=== PATIENT | male | born 1975 | race Caucasian/White ===

== ENCOUNTER 2016-08-06 09:45 | Emergency (ER) | payer OTHER ==
[~2016-08-06] VITALS: Ht 185.4 cm; Wt 115.8 kg
[~2016-08-06 09:45] MED LIST: GLUCOPHAGE500 MG PO; NO HOME MEDS; PERCOCET 10/1 TABLET PO
[2016-08-06] MEDS ORDERED: LISINOPRIL20 MG PO (10:07)
[2016-08-06] MEDS ORDERED: K-DUR20 MEQ PO (10:08)
[2016-08-06] MEDS ORDERED: LEVOTHYROXINE25 MCG PO (10:08)
[2016-08-06] MEDS ORDERED: FUROSEMIDE40 MG PO (10:08)
[2016-08-06] MEDS ORDERED: SERTRALINE HCL50 MG PO (10:09)
[2016-08-06 10:23] LABS: BASOPHIL COUNT 0.1 K/uL (0-0.1); EOSINOPHIL (%) 3.8 % (0-5); EOSINOPHIL COUNT 0.4 K/uL (0-0.3); HEMATOCRIT 34.4 % (38.0-50.0); IMMATURE GRANULOCYTE (%) 0.5 % (0.0-0.7); IMMATURE GRANULOCYTE COUNT 0.1 K/uL; INSTRUMENT ABS NEUTROPHIL CT 5.8 K/uL; LYMPHOCYTE COUNT 3.8 K/uL (1.0-2.8); MCH 27.3 PG (29.0-34.0); MCHC 34.3 G/DL (30.0-36.0); MCV 79.6 FL (86-99); MEAN PLAT.VOLUME 10.2 uM^3 (9.0-12.4); MONOCYTE COUNT 0.7 K/uL (0-0.8); NEUTROPHIL (%) 53.8 % (45-76); NEUTROPHIL COUNT 5.8 K/uL (1.8-6.4); PLATELET COUNT 242 K/uL (156-360); RBC DIS.WIDTH-CV 13.1 % (11.8-14.6); RBC DIS.WIDTH-SD 37.4 % (39-53); RED BLOOD COUNT 4.32 M/uL (4.00-5.50); WHITE BLOOD COUNT 10.8 K/uL (4.1-10.2)
[2016-08-06 10:32] LABS: CHLORIDE 104 mEq/L (99-109); POTASSIUM 5.3 mEq/L (3.7-5.4); SODIUM 134 mEq/L (136-147)
[2016-08-06 10:35] LABS: GLUCOSE 238 mg/dL (70-99)
[2016-08-06 10:36] LABS: ANION GAP 4 MEQ/L (2-14)
[2016-08-06 10:37] LABS: TOTAL BILIRUBIN 0.2 mg/dL (0.0-1.0)
[2016-08-06 10:38] LABS: ALKALINE PHOSPHATASE 83 IU/L (3-129); GFR ESTIMATE (CALCULATED) > 59 mL/min/
[2016-08-06 10:39] LABS: UREA NITROGEN (BUN) 27 mg/dL (9-23)
[2016-08-06 10:44] LABS: TROP-I INTERPRETATION NEGATIVE; TROPONIN-I 0.03 ng/mL (0.0-0.30)
[2016-08-06] MEDS ORDERED: HYDROCHLOROTHIA25 MG PO (12:35)
[2016-08-06] MEDS ORDERED: COREG12.5 M1 PO (12:35)
[2016-08-06 12:56] VITALS: BP 158/99
== END 2016-08-06 12:56 | disposition home or self-care (01) ==
LOC: EME 09:45
PROVIDERS: Emergency Medicine
DX: I10 Essential (primary) hypertension (principal); R51 Headache; F17.200 Nicotine dependence, unspecified, uncomplicated; E11.9 Type 2 diabetes mellitus without complications; Z79.84 Long term (current) use of oral hypoglycemic drugs
CPT/HCPCS: 70450; 71020; 80053; 84484; 85025; 93005; 99281; 99284

== ENCOUNTER 2016-10-06 14:05 | Emergency (ER) | payer OTHER ==
[~2016-10-06] VITALS: Ht 185.4 cm; Wt 120.0 kg
[~2016-10-06 14:05] MED LIST changes: +COREG12.5 M1 PO; +FUROSEMIDE40 MG PO; +HYDROCHLOROTHIA25 MG PO; +K-DUR20 MEQ PO; +LEVOTHYROXINE25 MCG PO; +LISINOPRIL20 MG PO; +SERTRALINE HCL50 MG PO
[2016-10-06 14:56] LABS: HEMATOCRIT 30.8 % (38.0-50.0); MCH 27.8 PG (29.0-34.0); MCHC 34.4 G/DL (30.0-36.0); MCV 80.8 FL (86-99); PLATELET COUNT 220 K/uL (156-360); RBC DIS.WIDTH-CV 13.5 % (11.8-14.6); RBC DIS.WIDTH-SD 39.8 % (39-53); RED BLOOD COUNT 3.81 M/uL (4.00-5.50)
[2016-10-06 15:05] LABS: CHLORIDE 110 mEq/L (99-109); SODIUM 137 mEq/L (136-147)
[2016-10-06 15:08] LABS: GLUCOSE 225 mg/dL (70-99)
[2016-10-06 15:09] LABS: ANION GAP 5 MEQ/L (2-14)
[2016-10-06 15:10] LABS: TOTAL BILIRUBIN 0.1 mg/dL (0.0-1.0)
[2016-10-06 15:11] LABS: ALKALINE PHOSPHATASE 75 IU/L (3-129)
[2016-10-06 15:13] LABS: DIRECT BILIRUBIN 0.1 mg/dL (0.0-0.3); GFR ESTIMATE (CALCULATED) > 59 mL/min/; UREA NITROGEN (BUN) 25 mg/dL (9-23)
[2016-10-06 15:15] LABS: LIPASE 12 U/L (1.0-51.0)
[2016-10-06 15:21] LABS: PROTHROMBIN TIME 9.9 (9.2-11.2)
[2016-10-06 16:17] LABS: ADD MIUA? YES; BILIRUBIN NEGATIVE; BLOOD SMALL; COLOR YELLOW ((YELLOW)); GLUCOSE (STRIP) >=500; KETONES NEGATIVE; LEUKOCYTES NEGATIVE; NITRITE NEGATIVE; PROTEIN (STRIP) >=500; SPECIFIC GRAVITY 1.016 (1.000-1.030); UROBILINOGEN 0.2 MG/DL (0.2-1.0)
[2016-10-06 16:20] LABS: BACTERIA RARE /HPF; EPITHELIAL CELLS RARE /HPF; MUCUS TRACE /LPF; UCUL ADDED? NO; WHITE BLOOD CELLS 0-5 /HPF (0-5)
[2016-10-06] MEDS ORDERED: ALDACTONE25 MG PO (16:37)
[2016-10-06 16:42] VITALS: BP 188/110
== END 2016-10-06 17:34 | disposition home or self-care (01) ==
LOC: EME 14:05
DX: R60.1 Generalized edema (principal); R18.8 Other ascites; E11.9 Type 2 diabetes mellitus without complications; I10 Essential (primary) hypertension; F17.200 Nicotine dependence, unspecified, uncomplicated
CPT/HCPCS: 76705; 80053; 81003; 82248; 83690; 85027; 85610; 99281; 99284

== ENCOUNTER 2016-10-25 10:34 | Inpatient (IN) | payer OTHER ==
[~2016-10-25] VITALS: Ht 185.4 cm; Wt 124.2 kg
[~2016-10-25 10:34] MED LIST changes: +ALDACTONE25 MG PO
[2016-10-25 12:09] LABS: HEMATOCRIT 33.1 % (38.0-50.0); MCH 27.9 PG (29.0-34.0); MCHC 33.8 G/DL (30.0-36.0); MCV 82.3 FL (86-99); MEAN PLAT.VOLUME 10.2 uM^3 (9.0-12.4); PLATELET COUNT 236 K/uL (156-360); RBC DIS.WIDTH-CV 13.6 % (11.8-14.6); RBC DIS.WIDTH-SD 40.6 % (39-53); RED BLOOD COUNT 4.02 M/uL (4.00-5.50); WHITE BLOOD COUNT 11.3 K/uL (4.1-10.2)
[2016-10-25 12:23] LABS: CHLORIDE 107 mEq/L (99-109); POTASSIUM 5.1 mEq/L (3.7-5.4); SODIUM 137 mEq/L (136-147)
[2016-10-25 12:25] LABS: GLUCOSE 274 mg/dL (70-99)
[2016-10-25 12:26] LABS: ANION GAP 4 MEQ/L (2-14)
[2016-10-25 12:27] LABS: TOTAL BILIRUBIN 0.2 mg/dL (0.0-1.0)
[2016-10-25 12:29] LABS: ALKALINE PHOSPHATASE 89 IU/L (3-129); GFR ESTIMATE (CALCULATED) > 59 mL/min/
[2016-10-25 12:30] LABS: UREA NITROGEN (BUN) 32 mg/dL (9-23)
[2016-10-25 13:07] LABS: ADD MIUA? YES; BILIRUBIN NEGATIVE; BLOOD NEGATIVE; COLOR YELLOW ((YELLOW)); GLUCOSE (STRIP) >=500; KETONES NEGATIVE; LEUKOCYTES NEGATIVE; NITRITE NEGATIVE; PROTEIN (STRIP) >=500; SPECIFIC GRAVITY 1.018 (1.000-1.030); UROBILINOGEN 0.2 MG/DL (0.2-1.0)
[2016-10-25 13:20] LABS: BACTERIA NONE SEEN /HPF; EPITHELIAL CELLS RARE /HPF; HYALINE CASTS 20-30 /LPF; MUCUS TRACE /LPF; UCUL ADDED? NO; WHITE BLOOD CELLS 0-5 /HPF (0-5)
[2016-10-25] MEDS ORDERED: METFORMIN HCL1000 MG PO (17:00)
[2016-10-25 19:23] LABS: TROP-I INTERPRETATION NEGATIVE; TROPONIN-I < 0.01 ng/mL (0.0-0.30)
[2016-10-25 21:29] VITALS: BP 188/102
[2016-10-25 21:50] LABS: POINT-OF-CARE METER ID UU14174225
[2016-10-25 23:37] VITALS: BP 174/90
[2016-10-26 01:36] LABS: TROP-I INTERPRETATION NEGATIVE; TROPONIN-I < 0.01 ng/mL (0.0-0.30)
[2016-10-26 04:00] VITALS: BP 127/91
[2016-10-26 07:18] VITALS: BP 165/77
[2016-10-26 07:38] LABS: POINT-OF-CARE METER ID UU14174225
[2016-10-26 08:55] LABS: HEMATOCRIT 28.1 % (38.0-50.0); MCH 28.2 PG (29.0-34.0); MCHC 34.2 G/DL (30.0-36.0); MCV 82.4 FL (86-99); MEAN PLAT.VOLUME 10.2 uM^3 (9.0-12.4); PLATELET COUNT 204 K/uL (156-360); RBC DIS.WIDTH-CV 13.7 % (11.8-14.6); RBC DIS.WIDTH-SD 41.1 % (39-53); RED BLOOD COUNT 3.41 M/uL (4.00-5.50); WHITE BLOOD COUNT 9.1 K/uL (4.1-10.2)
[2016-10-26 09:25] LABS: PROTHROMBIN TIME 10.3 (9.2-11.2)
[2016-10-26 09:59] LABS: ALKALINE PHOSPHATASE 67 IU/L (3-129); ANION GAP 4 MEQ/L (2-14); CHLORIDE 110 MEQ/L (99-109); GFR ESTIMATE (CALCULATED) > 59 mL/min/; GLUCOSE 166 mg/dL (70-99); IRON 89 MCG/DL (35-150); POTASSIUM 4.5 MEQ/L (3.7-5.4); SAMPLE HEMOLYSIS CHECK 0; SAMPLE ICTERIC CHECK 0; SAMPLE LIPEMIA CHECK 0; SODIUM 139 MEQ/L (136-147); TOTAL BILIRUBIN 0.2 MG/DL (0.0-1.0); UREA NITROGEN (BUN) 31 mg/dL (9-23)
[2016-10-26 10:17] LABS: TROP-I INTERPRETATION NEGATIVE; TROPONIN-I 0.02 ng/mL (0.0-0.30)
[2016-10-26 10:58] VITALS: BP 164/83
[2016-10-26 14:58] VITALS: BP 154/79
[2016-10-26 19:26] VITALS: BP 167/84
[2016-10-26 23:26] VITALS: BP 153/81
[2016-10-27 03:27] VITALS: BP 146/89
[2016-10-27 06:42] LABS: BASOPHIL COUNT 0.1 K/uL (0-0.1); EOSINOPHIL COUNT 0.4 K/uL (0-0.3); HEMATOCRIT 28.9 % (38.0-50.0); IMMATURE GRANULOCYTE (%) 0.3 % (0.0-0.7); INSTRUMENT ABS NEUTROPHIL CT 4.3 K/uL; LYMPHOCYTE COUNT 4.4 K/uL (1.0-2.8); MCH 28.1 PG (29.0-34.0); MCHC 33.9 G/DL (30.0-36.0); MCV 82.8 FL (86-99); MEAN PLAT.VOLUME 10.5 uM^3 (9.0-12.4); MONOCYTE (%) 8.1 % (3-12); MONOCYTE COUNT 0.8 K/uL (0-0.8); NEUTROPHIL (%) 42.7 % (45-76); NEUTROPHIL COUNT 4.3 K/uL (1.8-6.4); PLATELET COUNT 204 K/uL (156-360); RBC DIS.WIDTH-CV 13.4 % (11.8-14.6); RBC DIS.WIDTH-SD 40.4 % (39-53); RED BLOOD COUNT 3.49 M/uL (4.00-5.50); WHITE BLOOD COUNT 10.1 K/uL (4.1-10.2)
[2016-10-27 07:14] LABS: ANION GAP 2 MEQ/L (2-14); CHLORIDE 109 MEQ/L (99-109); GFR ESTIMATE (CALCULATED) > 59 mL/min/; GLUCOSE 137 mg/dL (70-99); POTASSIUM 4.7 MEQ/L (3.7-5.4); SAMPLE HEMOLYSIS CHECK 0; SAMPLE ICTERIC CHECK 0; SAMPLE LIPEMIA CHECK 0; SODIUM 139 MEQ/L (136-147); UREA NITROGEN (BUN) 34 mg/dL (9-23)
[2016-10-27 07:19] VITALS: BP 172/88
[2016-10-27 11:02] VITALS: BP 160/89
[2016-10-27 11:17] LABS: POINT-OF-CARE METER ID UU14174225
[2016-10-27] MEDS ORDERED: LISINOPRIL5 MG PO (13:30)
[2016-10-27] MEDS ORDERED: SPIRONOLACTONE25 MG PO (13:30)
[2016-10-27] MEDS ORDERED: LASIX40 MG PO (13:31)
== END 2016-10-27 15:14 | disposition home or self-care (01) | DRG 433 ==
LOC: EME 10:34 → 5SOUTH 18:24 → EDOF 18:24 → 5SOUTH 21:18
PROVIDERS: Hospitalist; Internal Medicine
DX: K74.60 Unspecified cirrhosis of liver (principal); E87.70 Fluid overload, unspecified; I16.0 Hypertensive urgency; E11.65 Type 2 diabetes mellitus with hyperglycemia; R16.0 Hepatomegaly, not elsewhere classified; B18.2 Chronic viral hepatitis C; I10 Essential (primary) hypertension; R18.8 Other ascites; D18.09 Hemangioma of other sites; E66.9 Obesity, unspecified; Z68.35 Body mass index [BMI] 35.0-35.9, adult; E88.09 Other disorders of plasma-protein metabolism, not elsewhere classified; D64.9 Anemia, unspecified; Z87.891 Personal history of nicotine dependence; Z82.49 Family history of ischemic heart disease and other diseases of the circulatory system
CPT/HCPCS: 71010; 71275; 74177; 76705; 80048; 80053; 80076; 81003; 82272; 82607; 82948; 83540; 83880; 84443; 84466; 84484; 85025; 85027; 85610; 93005; 93306; 93970; 94640; 99281; 99285; J1650; J1815; J1940

== ENCOUNTER → 2016-11-30 | Outpatient (CLI) | payer OTHER ==
[~2016-11-30] VITALS: Ht 188 cm; Wt 109.8 kg
[~2016-11-30] MED LIST changes: +LASIX40 MG PO; +LISINOPRIL5 MG PO; +METFORMIN HCL1000 MG PO; +SPIRONOLACTONE25 MG PO
[2016-11-30 08:46] LABS: POINT-OF-CARE METER ID UU13113694
[2016-11-30 09:21] LABS: PROTHROMBIN TIME 9.9 (9.2-11.2); PTT 25.4 (25-32)
== END | disposition home or self-care (01) ==
LOC: OPR 07:57 → EDSTATUS 08:00
PROVIDERS: Internal Medicine; Radiology Diagnostic Radiology
DX: E11.21 Type 2 diabetes mellitus with diabetic nephropathy (principal); E11.22 Type 2 diabetes mellitus with diabetic chronic kidney disease; I12.9 Hypertensive chronic kidney disease with stage 1 through stage 4 chronic kidney disease, or unspecified chronic kidney disease; N18.2 Chronic kidney disease, stage 2 (mild); E66.9 Obesity, unspecified; Z68.32 Body mass index [BMI] 32.0-32.9, adult; B18.2 Chronic viral hepatitis C; E78.5 Hyperlipidemia, unspecified
CPT/HCPCS: 77012; 82948; 85610; 85730; 88305; 88313 90; 88346 90; 88348 90; J3010

== ENCOUNTER 2016-12-29 18:28 | Emergency (ER) | payer OTHER ==
[~2016-12-29] VITALS: Ht 185.4 cm; Wt 126.8 kg
[2016-12-29 19:16] LABS: BASOPHIL COUNT 0.1 K/uL (0-0.1); EOSINOPHIL (%) 4.3 % (0-5); EOSINOPHIL COUNT 0.3 K/uL (0-0.3); HEMATOCRIT 32.5 % (38.0-50.0); IMMATURE GRANULOCYTE (%) 0.4 % (0.0-0.7); INSTRUMENT ABS NEUTROPHIL CT 3.6 K/uL; LYMPHOCYTE COUNT 2.6 K/uL (1.0-2.8); MCHC 34.5 G/DL (30.0-36.0); MCV 81.3 FL (86-99); MEAN PLAT.VOLUME 9.8 uM^3 (9.0-12.4); MONOCYTE (%) 6.7 % (3-12); MONOCYTE COUNT 0.5 K/uL (0-0.8); NEUTROPHIL (%) 51.1 % (45-76); NEUTROPHIL COUNT 3.6 K/uL (1.8-6.4); PLATELET COUNT 192 K/uL (156-360); RBC DIS.WIDTH-CV 13.3 % (11.8-14.6); RBC DIS.WIDTH-SD 39.4 % (39-53)
[2016-12-29 19:24] LABS: CHLORIDE 110 mEq/L (99-109); POTASSIUM 4.8 mEq/L (3.7-5.4); SODIUM 135 mEq/L (136-147)
[2016-12-29 19:27] LABS: GLUCOSE 240 mg/dL (70-99)
[2016-12-29 19:28] LABS: ANION GAP 2 MEQ/L (2-14)
[2016-12-29 19:29] LABS: TOTAL BILIRUBIN 0.1 mg/dL (0.0-1.0)
[2016-12-29 19:30] LABS: ALKALINE PHOSPHATASE 89 IU/L (3-129); GFR ESTIMATE (CALCULATED) 54 mL/min/
[2016-12-29 19:31] LABS: UREA NITROGEN (BUN) 27 mg/dL (9-23)
[2016-12-29 19:39] LABS: TROP-I INTERPRETATION NEGATIVE; TROPONIN-I 0.02 ng/mL (0.0-0.30)
[2016-12-29 19:55] LABS: INTER. NORMALIZED RATIO 0.9; PROTHROMBIN TIME 9.5 SEC (10.2-12.9)
[2016-12-29 19:57] LABS: PTT 28.2 SEC (25-37)
[2016-12-29 20:27] LABS: ADD MIUA? YES; BILIRUBIN NEGATIVE; BLOOD SMALL; COLOR YELLOW ((YELLOW)); GLUCOSE (STRIP) >=500; KETONES NEGATIVE; LEUKOCYTES NEGATIVE; NITRITE NEGATIVE; PROTEIN (STRIP) >=500; SPECIFIC GRAVITY 1.021 (1.000-1.030); UROBILINOGEN 0.2 MG/DL (0.2-1.0)
[2016-12-29 20:33] LABS: BACTERIA RARE /HPF; EPITHELIAL CELLS RARE /HPF; MUCUS TRACE /LPF; UCUL ADDED? NO; WHITE BLOOD CELLS 0-5 /HPF (0-5)
[2016-12-29 20:39] LABS: GRANULAR CASTS 20-25 /LPF
[2016-12-29] MEDS ORDERED: NORVASC5 MG PO (21:23)
[2016-12-29 22:11] VITALS: BP 171/114
[2016-12-30] MEDS ORDERED: DIOVAN40 MG PO (13:12)
== END 2016-12-29 22:19 | disposition home or self-care (01) ==
LOC: EME 18:28
PROVIDERS: Emergency Medicine
DX: R18.8 Other ascites (principal); E11.9 Type 2 diabetes mellitus without complications; F17.200 Nicotine dependence, unspecified, uncomplicated; Z79.84 Long term (current) use of oral hypoglycemic drugs; Z86.19 Personal history of other infectious and parasitic diseases
CPT/HCPCS: 76705; 80053; 81003; 83880; 84484; 85025; 85610; 85730; 99281; 99284

== ENCOUNTER → 2016-12-30 | Outpatient (CLI) | payer OTHER ==
[~2016-12-30] MED LIST changes: +DIOVAN40 MG PO; +NORVASC5 MG PO
[2016-12-30 13:52] LABS: TYPE OF FLUID PARACENTESIS
[2016-12-30 14:41] LABS: BODY FLUID EOSINOPHILS 0 % (0-25); BODY FLUID RBC'S < 1000 /MM^3 (0-100); BODY FLUID WBC'S 155 /MM^3 (0-500); MONONUCLEAR WBC'S 98 %; POLYNUCLEAR WBC'S 2 % (0-25)
== END | disposition home or self-care (01) ==
LOC: RAD 12:58
PROVIDERS: Emergency Medicine
PROC: 0W9G3ZZ Drainage of Peritoneal Cavity, Percutaneous Approach (ICD-10-PCS; principal; 2016-12-30)
DX: R18.8 Other ascites (principal)
CPT/HCPCS: 49083; 87070; 87205; 89051

== ENCOUNTER → 2017-02-02 | Outpatient (CLI) | payer OTHER | END | disposition home or self-care (01) | LOC: RAD 08:03 | PROC: 0W9G3ZZ Drainage of Peritoneal Cavity, Percutaneous Approach (ICD-10-PCS; principal; 2017-02-02) | DX: R18.8 Other ascites (principal); B18.2 Chronic viral hepatitis C; R60.1 Generalized edema; K76.0 Fatty (change of) liver, not elsewhere classified | CPT/HCPCS: 49083 ==

== ENCOUNTER → 2017-04-05 | Outpatient (CLI) | payer OTHER | END | disposition home or self-care (01) | LOC: RAD 12:58 | PROC: 0W9G3ZZ Drainage of Peritoneal Cavity, Percutaneous Approach (ICD-10-PCS; principal; 2017-04-05) | DX: R18.8 Other ascites (principal); K74.69 Other cirrhosis of liver | CPT/HCPCS: 49083; P9047 ==

== ENCOUNTER 2017-05-20 08:29 | Inpatient (IN) | payer OTHER ==
[~2017-05-20] VITALS: Ht 182.9 cm; Wt 140.0 kg
[~2017-05-20 08:29] MED LIST changes: -ERGOCALCIF50000 UNIT PO
[2017-05-20 09:26] LABS: HEMATOCRIT 27.1 % (38.0-50.0); HEMOGLOBIN 9.3 G/DL (12.5-16.6); MCH 28.3 PG (29.0-34.0); MCHC 34.3 G/DL (30.0-36.0); MCV 82.4 FL (86-99); PLATELET COUNT 171 K/uL (156-360); RBC DIS.WIDTH-CV 14.3 % (11.8-14.6); RBC DIS.WIDTH-SD 42.5 % (39-53); RED BLOOD COUNT 3.29 M/uL (4.00-5.50); WHITE BLOOD COUNT 9.8 K/uL (4.1-10.2)
[2017-05-20 09:34] LABS: CHLORIDE 112 mEq/L (99-109); POTASSIUM 4.3 mEq/L (3.7-5.4); SODIUM 139 mEq/L (136-147)
[2017-05-20 09:36] LABS: GLUCOSE 212 mg/dL (70-99)
[2017-05-20 09:40] LABS: GFR ESTIMATE (CALCULATED) 39 mL/min/ (58.99-99999)
[2017-05-20 09:41] LABS: UREA NITROGEN (BUN) 33 mg/dL (9-23)
[2017-05-20 10:06] LABS: TROP-I INTERPRETATION NEGATIVE; TROPONIN-I 0.03 ng/mL (0.0-0.30)
[2017-05-20] MEDS ORDERED: ERGOCALCIF50000 UNIT PO (14:04)
[2017-05-20 14:30] VITALS: BP 175/98
[2017-05-20 15:03] LABS: PTT 29.7 SEC (25-37)
[2017-05-20 15:17] LABS: HDL CHOLESTEROL 36 MG/DL (Desirable>=40); LDL CHOLESTEROL 197 mg/dL (Desirable<100); NON-HDL CHOLESTEROL 240 mg/dL (Desirable<160); TOTAL CHOLESTEROL 276 mg/dL (Desirable<200); TRIGLYCERIDES 215 MG/DL (Normal: <150)
[2017-05-20 15:30] VITALS: BP 162/80
[2017-05-20 15:38] LABS: Estimated Average Glucose 166 mg/dL (70-123); HEMOGLOBIN A1c (GLYCOHEMOGLOB) 7.4 % HGB (Below 5.7)
[2017-05-20 19:12] VITALS: BP 207/109
[2017-05-20 23:38] VITALS: BP 178/110
[2017-05-21 03:12] VITALS: BP 176/88
[2017-05-21 06:35] LABS: HEMATOCRIT 27.8 % (38.0-50.0); HEMOGLOBIN 9.4 G/DL (12.5-16.6); MCH 28.1 PG (29.0-34.0); MCHC 33.8 G/DL (30.0-36.0); PLATELET COUNT 166 K/uL (156-360); RBC DIS.WIDTH-CV 14.5 % (11.8-14.6); RBC DIS.WIDTH-SD 43.3 % (39-53); RED BLOOD COUNT 3.35 M/uL (4.00-5.50); WHITE BLOOD COUNT 8.8 K/uL (4.1-10.2)
[2017-05-21 06:53] LABS: CHLORIDE 113 MEQ/L (99-109); GFR ESTIMATE (CALCULATED) 39 mL/min/ (58.99-99999); GLUCOSE 245 mg/dL (70-99); MAGNESIUM 1.6 mg/dl (1.3-2.7); POTASSIUM 4.6 MEQ/L (3.7-5.4); SODIUM 140 MEQ/L (136-147); UREA NITROGEN (BUN) 35 mg/dL (9-23)
[2017-05-21 07:52] VITALS: BP 152/80
[2017-05-21 11:45] VITALS: BP 175/96
[2017-05-21 12:38] LABS: IRON 63 MCG/DL (35-150); TRANSFERRIN SATUR. 46 % (20-55)
[2017-05-21 12:54] LABS: FERRITIN 159 NG/ML (22-322)
[2017-05-21 16:00] VITALS: BP 196/98
[2017-05-21 19:50] VITALS: BP 177/85
[2017-05-21 23:38] VITALS: BP 178/111
[2017-05-22 03:07] VITALS: BP 169/83
[2017-05-22 06:22] LABS: HEMATOCRIT 28.2 % (38.0-50.0); HEMOGLOBIN 9.5 G/DL (12.5-16.6); MCH 27.9 PG (29.0-34.0); MCHC 33.7 G/DL (30.0-36.0); MCV 82.7 FL (86-99); PLATELET COUNT 205 K/uL (156-360); RBC DIS.WIDTH-CV 14.5 % (11.8-14.6); RBC DIS.WIDTH-SD 43.7 % (39-53); RED BLOOD COUNT 3.41 M/uL (4.00-5.50); WHITE BLOOD COUNT 10.8 K/uL (4.1-10.2)
[2017-05-22 07:03] LABS: CHLORIDE 109 MEQ/L (99-109); CREATININE 2.3 MG/DL (0.6-1.3); GFR ESTIMATE (CALCULATED) 33 mL/min/ (58.99-99999); POTASSIUM 4.8 MEQ/L (3.7-5.4); SODIUM 135 MEQ/L (136-147); UREA NITROGEN (BUN) 44 mg/dL (9-23)
[2017-05-22 07:06] LABS: GLUCOSE 415 mg/dL (70-99)
[2017-05-22 07:15] VITALS: BP 171/87
[2017-05-22 11:01] VITALS: BP 138/94
[2017-05-22 13:31] LABS: GLUCOSE 569 mg/dL (70-99)
[2017-05-22 15:03] VITALS: BP 191/95
[2017-05-22 21:00] VITALS: BP 175/92
[2017-05-22 22:27] LABS: GLUCOSE 664 mg/dL (70-99)
[2017-05-23] VITALS: BP 172/83
[2017-05-23 06:35] LABS: HEMATOCRIT 26.9 % (38.0-50.0); HEMOGLOBIN 9.2 G/DL (12.5-16.6); MCH 28.8 PG (29.0-34.0); MCHC 34.2 G/DL (30.0-36.0); MCV 84.1 FL (86-99); PLATELET COUNT 209 K/uL (156-360); RBC DIS.WIDTH-CV 14.1 % (11.8-14.6); RBC DIS.WIDTH-SD 43.8 % (39-53); WHITE BLOOD COUNT 13.4 K/uL (4.1-10.2)
[2017-05-23 06:58] VITALS: BP 182/86
[2017-05-23 07:12] LABS: ALBUMIN 2.3 G/DL (3.2-4.8); ALKALINE PHOSPHATASE 61 IU/L (3-129); ALT (GPT) 12 IU/L (3-49); AST (GOT) 10 IU/L (2-34); CHLORIDE 108 MEQ/L (99-109); CREATININE 2.5 MG/DL (0.6-1.3); GFR ESTIMATE (CALCULATED) 30 mL/min/ (58.99-99999); POTASSIUM 4.8 MEQ/L (3.7-5.4); SODIUM 135 MEQ/L (136-147); TOTAL BILIRUBIN 0.2 MG/DL (0.0-1.0); TOTAL PROTEIN 4.7 G/DL (6.4-8.3); UREA NITROGEN (BUN) 50 mg/dL (9-23)
[2017-05-23 07:17] LABS: GLUCOSE 565 mg/dL (70-99)
[2017-05-23 15:09] VITALS: BP 177/84
[2017-05-23 22:46] LABS: GLUCOSE 466 mg/dL (70-99)
[2017-05-24 00:27] VITALS: BP 173/89
[2017-05-24 03:54] VITALS: BP 191/103
[2017-05-24 06:47] LABS: HEMOGLOBIN 8.6 G/DL (12.5-16.6); MCH 28.1 PG (29.0-34.0); MCHC 34.4 G/DL (30.0-36.0); MCV 81.7 FL (86-99); PLATELET COUNT 230 K/uL (156-360); RBC DIS.WIDTH-CV 14.3 % (11.8-14.6); RBC DIS.WIDTH-SD 42.3 % (39-53); RED BLOOD COUNT 3.06 M/uL (4.00-5.50); WHITE BLOOD COUNT 13.1 K/uL (4.1-10.2)
[2017-05-24 07:05] VITALS: BP 143/65
[2017-05-24 07:10] LABS: ALBUMIN 2.5 G/DL (3.2-4.8); ALKALINE PHOSPHATASE 39 IU/L (3-129); ALT (GPT) 14 IU/L (3-49); AST (GOT) 12 IU/L (2-34); CHLORIDE 107 MEQ/L (99-109); CREATININE 2.7 MG/DL (0.6-1.3); GFR ESTIMATE (CALCULATED) 27 mL/min/ (58.99-99999); GLUCOSE 322 mg/dL (70-99); POTASSIUM 4.8 MEQ/L (3.7-5.4); SODIUM 134 MEQ/L (136-147); TOTAL BILIRUBIN 0.2 MG/DL (0.0-1.0); TOTAL PROTEIN 4.4 G/DL (6.4-8.3); UREA NITROGEN (BUN) 53 mg/dL (9-23)
[2017-05-24 07:13] LABS: CHLORIDE 108 MEQ/L (99-109); CREATININE 2.7 MG/DL (0.6-1.3); GFR ESTIMATE (CALCULATED) 27 mL/min/ (58.99-99999); GLUCOSE 319 mg/dL (70-99); POTASSIUM 4.8 MEQ/L (3.7-5.4); SODIUM 134 MEQ/L (136-147); UREA NITROGEN (BUN) 53 mg/dL (9-23)
[2017-05-24 15:17] VITALS: BP 138/75
[2017-05-24 23:20] VITALS: BP 148/60
[2017-05-25 07:16] VITALS: BP 135/81
[2017-05-25 07:20] LABS: BASOPHIL (%) 0.1 % (0-1); EOSINOPHIL (%) 0.1 % (0-5); HEMATOCRIT 26.4 % (38.0-50.0); HEMOGLOBIN 8.9 G/DL (12.5-16.6); LYMPHOCYTE (%) 13.9 % (15-42); LYMPHOCYTE COUNT 1.9 K/uL (1.0-2.8); MCH 28.1 PG (29.0-34.0); MCHC 33.7 G/DL (30.0-36.0); MCV 83.3 FL (86-99); MONOCYTE (%) 9.2 % (3-12); MONOCYTE COUNT 1.2 K/uL (0-0.8); NEUTROPHIL (%) 74.7 % (45-76); PLATELET COUNT 234 K/uL (156-360); RBC DIS.WIDTH-CV 14.5 % (11.8-14.6); RBC DIS.WIDTH-SD 44.2 % (39-53); RED BLOOD COUNT 3.17 M/uL (4.00-5.50); WHITE BLOOD COUNT 13.4 K/uL (4.1-10.2)
[2017-05-25 07:43] LABS: ALBUMIN 2.7 G/DL (3.2-4.8); ALKALINE PHOSPHATASE 35 IU/L (3-129); ALT (GPT) 16 IU/L (3-49); AST (GOT) 11 IU/L (2-34); CHLORIDE 107 MEQ/L (99-109); GFR ESTIMATE (CALCULATED) 23 mL/min/ (58.99-99999); GLUCOSE 276 mg/dL (70-99); MAGNESIUM 1.6 mg/dl (1.3-2.7); SODIUM 132 MEQ/L (136-147); TOTAL BILIRUBIN 0.2 MG/DL (0.0-1.0); TOTAL PROTEIN 4.3 G/DL (6.4-8.3); UREA NITROGEN (BUN) 67 mg/dL (9-23)
[2017-05-25 07:48] LABS: CREATININE 3.2 MG/DL (0.6-1.3)
[2017-05-25 16:09] VITALS: BP 112/69
[2017-05-25 23:55] VITALS: BP 155/78
[2017-05-26 03:31] VITALS: BP 155/78
[2017-05-26 07:44] LABS: BASOPHIL (%) 0.2 % (0-1); EOSINOPHIL (%) 0 % (0-5); HEMATOCRIT 29.7 % (38.0-50.0); IMMATURE GRANULOCYTE (%) 3.3 % (0.0-0.7); LYMPHOCYTE (%) 12.3 % (15-42); LYMPHOCYTE COUNT 2.4 K/uL (1.0-2.8); MCH 27.9 PG (29.0-34.0); MCHC 33.7 G/DL (30.0-36.0); MCV 82.7 FL (86-99); MONOCYTE (%) 7.1 % (3-12); MONOCYTE COUNT 1.4 K/uL (0-0.8); NEUTROPHIL (%) 77.1 % (45-76); PLATELET COUNT 246 K/uL (156-360); RBC DIS.WIDTH-CV 14.4 % (11.8-14.6); RBC DIS.WIDTH-SD 43.5 % (39-53); RED BLOOD COUNT 3.59 M/uL (4.00-5.50); WHITE BLOOD COUNT 19.5 K/uL (4.1-10.2)
[2017-05-26 08:00] VITALS: BP 135/79
[2017-05-26 08:03] LABS: ALBUMIN 2.5 G/DL (3.2-4.8); ALKALINE PHOSPHATASE 45 IU/L (3-129); ALT (GPT) 17 IU/L (3-49); AST (GOT) 12 IU/L (2-34); CHLORIDE 106 MEQ/L (99-109); CREATININE 3.1 MG/DL (0.6-1.3); GFR ESTIMATE (CALCULATED) 23 mL/min/ (58.99-99999); GLUCOSE 225 mg/dL (70-99); PHOSPHORUS 4.1 mg/dL (2.5-4.9); POTASSIUM 5.3 MEQ/L (3.7-5.4); SODIUM 131 MEQ/L (136-147); TOTAL PROTEIN 4.3 G/DL (6.4-8.3); UREA NITROGEN (BUN) 80 mg/dL (9-23)
[2017-05-26 08:05] LABS: TOTAL BILIRUBIN 0.3 MG/DL (0.0-1.0)
[2017-05-26 11:00] VITALS: BP 177/99
[2017-05-26 17:00] VITALS: BP 178/95
[2017-05-26 20:15] VITALS: BP 142/80
[2017-05-27 04:39] VITALS: BP 124/71
[2017-05-27 05:04] LABS: BASOPHIL (%) 0.3 % (0-1); BASOPHIL COUNT 0.1 K/uL (0-0.1); EOSINOPHIL (%) 0 % (0-5); HEMOGLOBIN 10.3 G/DL (12.5-16.6); IMMATURE GRANULOCYTE (%) 3.8 % (0.0-0.7); LYMPHOCYTE (%) 14.1 % (15-42); LYMPHOCYTE COUNT 3.2 K/uL (1.0-2.8); MCH 28.6 PG (29.0-34.0); MCHC 34.3 G/DL (30.0-36.0); MCV 83.3 FL (86-99); MONOCYTE (%) 7.2 % (3-12); MONOCYTE COUNT 1.6 K/uL (0-0.8); NEUTROPHIL (%) 74.6 % (45-76); NEUTROPHIL COUNT 16.7 K/uL (1.8-6.4); PLATELET COUNT 245 K/uL (156-360); RBC DIS.WIDTH-CV 14.3 % (11.8-14.6); RBC DIS.WIDTH-SD 43.8 % (39-53); WHITE BLOOD COUNT 22.5 K/uL (4.1-10.2)
[2017-05-27 05:35] LABS: ALBUMIN 2.3 G/DL (3.2-4.8); CHLORIDE 109 MEQ/L (99-109); CREATININE 3.1 MG/DL (0.6-1.3); GFR ESTIMATE (CALCULATED) 23 mL/min/ (58.99-99999); GLUCOSE 63 mg/dL (70-99); PHOSPHORUS 4.3 mg/dL (2.5-4.9); SODIUM 136 MEQ/L (136-147); UREA NITROGEN (BUN) 83 mg/dL (9-23)
[2017-05-27 08:25] VITALS: BP 136/62
[2017-05-27 08:51] LABS: GLUCOSE 244 mg/dL (70-99)
[2017-05-27 11:54] VITALS: BP 125/72
[2017-05-27 14:37] LABS: ANTI-HEPATITIS B CORE (TOTAL) Nonreactive
[2017-05-27 15:16] LABS: HEPATITIS B SURFACE ANTIGEN Nonreactive
[2017-05-27 15:17] LABS: HEPATITIS B SURFACE ANTIBODY Nonreactive
[2017-05-27 15:31] LABS: HEPATITIS C ANTIBODY REACTIVE
[2017-05-27 18:24] VITALS: BP 126/74
[2017-05-27 19:44] VITALS: BP 131/76
[2017-05-27 23:04] VITALS: BP 139/71
[2017-05-28 01:34] LABS: APPEARANCE CLEAR ((CLEAR)); BILIRUBIN NEGATIVE; BLOOD SMALL; COLOR STRAW ((YELLOW)); GLUCOSE (STRIP) 50; KETONES NEGATIVE; LEUKOCYTES NEGATIVE; NITRITE NEGATIVE; PROTEIN (STRIP) 100; SPECIFIC GRAVITY 1.009 (1.000-1.030); UROBILINOGEN 0.2 MG/DL (0.2-1.0)
[2017-05-28 01:43] LABS: BACTERIA NONE SEEN /HPF; EPITHELIAL CELLS RARE /HPF; HYALINE CASTS 15-20 /LPF; MUCUS TRACE /LPF; RED BLOOD CELLS 0-5 /HPF (0-5); WHITE BLOOD CELLS 0-5 /HPF (0-5)
[2017-05-28 03:43] VITALS: BP 126/67
[2017-05-28 08:15] LABS: BASOPHIL (%) 0.3 % (0-1); BASOPHIL COUNT 0.1 K/uL (0-0.1); EOSINOPHIL (%) 0 % (0-5); HEMATOCRIT 27.8 % (38.0-50.0); HEMOGLOBIN 9.2 G/DL (12.5-16.6); IMMATURE GRANULOCYTE (%) 3.7 % (0.0-0.7); LYMPHOCYTE COUNT 1.6 K/uL (1.0-2.8); MCHC 33.1 G/DL (30.0-36.0); MCV 84.5 FL (86-99); MONOCYTE (%) 8.1 % (3-12); MONOCYTE COUNT 1.4 K/uL (0-0.8); NEUTROPHIL (%) 78.9 % (45-76); NEUTROPHIL COUNT 13.8 K/uL (1.8-6.4); PLATELET COUNT 213 K/uL (156-360); RBC DIS.WIDTH-CV 14.4 % (11.8-14.6); RBC DIS.WIDTH-SD 44.6 % (39-53); RED BLOOD COUNT 3.29 M/uL (4.00-5.50); WHITE BLOOD COUNT 17.5 K/uL (4.1-10.2)
[2017-05-28 08:18] LABS: URINE TOTAL PROTEIN 327 MG/DL (0-10)
[2017-05-28 08:31] LABS: ALBUMIN 2.3 G/DL (3.2-4.8); CHLORIDE 108 MEQ/L (99-109); CREATININE 2.8 MG/DL (0.6-1.3); GFR ESTIMATE (CALCULATED) 26 mL/min/ (58.99-99999); GLUCOSE 150 mg/dL (70-99); PHOSPHORUS 5.7 mg/dL (2.5-4.9); POTASSIUM 5.4 MEQ/L (3.7-5.4); SODIUM 136 MEQ/L (136-147); UREA NITROGEN (BUN) 76 mg/dL (9-23)
[2017-05-28 12:22] VITALS: BP 127/79
[2017-05-28 15:48] VITALS: BP 138/69
[2017-05-28 19:30] VITALS: BP 147/73
[2017-05-29] VITALS (17 sets, daily range): BP systolic 87–137; BP diastolic 59–82
[2017-05-29 00:44] LABS: BASOPHIL (%) 0.1 % (0-1); EOSINOPHIL (%) 0 % (0-5); HEMATOCRIT 28.2 % (38.0-50.0); HEMOGLOBIN 9.5 G/DL (12.5-16.6); IMMATURE GRANULOCYTE (%) 4.4 % (0.0-0.7); LYMPHOCYTE (%) 7.8 % (15-42); LYMPHOCYTE COUNT 1.2 K/uL (1.0-2.8); MCH 28.2 PG (29.0-34.0); MCHC 33.7 G/DL (30.0-36.0); MCV 83.7 FL (86-99); MONOCYTE (%) 6.1 % (3-12); MONOCYTE COUNT 0.9 K/uL (0-0.8); NEUTROPHIL (%) 81.6 % (45-76); NEUTROPHIL COUNT 12.2 K/uL (1.8-6.4); PLATELET COUNT 201 K/uL (156-360); RBC DIS.WIDTH-CV 14.1 % (11.8-14.6); RBC DIS.WIDTH-SD 43.5 % (39-53); RED BLOOD COUNT 3.37 M/uL (4.00-5.50); WHITE BLOOD COUNT 14.9 K/uL (4.1-10.2)
[2017-05-29 00:52] LABS: ALBUMIN 2.5 g/dL (3.2-4.8)
[2017-05-29 00:53] LABS: CHLORIDE 108 mEq/L (99-109); POTASSIUM 5.3 mEq/L (3.7-5.4); SODIUM 137 mEq/L (136-147)
[2017-05-29 00:55] LABS: GLUCOSE 133 mg/dL (70-99); TOTAL PROTEIN 4.5 g/dL (6.4-8.3)
[2017-05-29 00:57] LABS: TOTAL BILIRUBIN 0.3 mg/dL (0.0-1.0)
[2017-05-29 00:58] LABS: ALKALINE PHOSPHATASE 57 IU/L (3-129)
[2017-05-29 00:59] LABS: CREATININE 2.3 mg/dL (0.6-1.3); GFR ESTIMATE (CALCULATED) 33 mL/min/ (58.99-99999)
[2017-05-29 01:00] LABS: AST (GOT) 23 IU/L (2-34); UREA NITROGEN (BUN) 64 mg/dL (9-23)
[2017-05-29 01:02] LABS: ALT (GPT) 26 IU/L (3-49); CREATINE KINASE 145 IU/L (1-294); TOTAL CK 145 IU/L (1-294)
[2017-05-29 01:04] LABS: TROP-I INTERPRETATION INDETERMINATE
[2017-05-29 01:07] LABS: CK-MB 4.3 ng/mL (0.0-4.9)
[2017-05-29 06:38] LABS: ALBUMIN 2.3 G/DL (3.2-4.8); CHLORIDE 106 MEQ/L (99-109); CREATININE 2.3 MG/DL (0.6-1.3); GFR ESTIMATE (CALCULATED) 33 mL/min/ (58.99-99999); GLUCOSE 166 mg/dL (70-99); PHOSPHORUS 5.9 mg/dL (2.5-4.9); POTASSIUM 5.2 MEQ/L (3.7-5.4); SODIUM 137 MEQ/L (136-147); UREA NITROGEN (BUN) 67 mg/dL (9-23)
[2017-05-29 07:07] LABS: BASOPHIL (%) 0.3 % (0-1); EOSINOPHIL (%) 0 % (0-5); HEMATOCRIT 28.3 % (38.0-50.0); HEMOGLOBIN 9.3 G/DL (12.5-16.6); IMMATURE GRANULOCYTE (%) 4.2 % (0.0-0.7); LYMPHOCYTE (%) 11.4 % (15-42); LYMPHOCYTE COUNT 1.5 K/uL (1.0-2.8); MCH 28.1 PG (29.0-34.0); MCHC 32.9 G/DL (30.0-36.0); MCV 85.5 FL (86-99); MONOCYTE (%) 7.7 % (3-12); NEUTROPHIL (%) 76.4 % (45-76); NEUTROPHIL COUNT 10.1 K/uL (1.8-6.4); PLATELET COUNT 195 K/uL (156-360); RBC DIS.WIDTH-CV 14.4 % (11.8-14.6); RBC DIS.WIDTH-SD 44.7 % (39-53); RED BLOOD COUNT 3.31 M/uL (4.00-5.50); WHITE BLOOD COUNT 13.2 K/uL (4.1-10.2)
[2017-05-29 08:43] LABS: ERTH.SED.RATE 7 MM/HR (0-15)
[2017-05-29 09:23] LABS: BASE EXCESS -1.8 mEq/L (-3 to +3); BICARBONATE 27.6 mEq/L (22-26); CARBOXY HGB 1.4 % (0-5); METHEMOGLOBIN 2.2 % (0-1.5); PCO2 74 mm Hg (35-45); PO2 47 mm Hg (80-100); SITE RR
[2017-05-29 09:24] LABS: COMMENTS - BLOOD GASES A+C+; DEVICE NRB; FI02 100 %; TOTAL RESP RATE 34 resp/min; pH 7.18 (7.35-7.45)
[2017-05-29 10:09] LABS: BASE EXCESS -2.5 mEq/L (-3 to +3); BICARBONATE 23.7 mEq/L (22-26); CARBOXY HGB 1.7 % (0-5); DEVICE VENT; FI02 100 %; METHEMOGLOBIN 1.6 % (0-1.5); MODE AC; PCO2 46 mm Hg (35-45); PO2 52 mm Hg (80-100); SITE RR; pH 7.32 (7.35-7.45)
[2017-05-29 10:10] LABS: MECHANICAL RATE 20 resp/min; PEEP 10 CM/H20; TIDAL VOLUME 500 ML; TOTAL RESP RATE 40 resp/min
[2017-05-29 12:14] LABS: TROP-I INTERPRETATION INDETERMINATE; TROPONIN-I 0.33 ng/mL (0.0-0.30)
[2017-05-29 18:36] LABS: TROP-I INTERPRETATION INDETERMINATE; TROPONIN-I 0.44 ng/mL (0.0-0.30)
[2017-05-30] VITALS (22 sets, daily range): BP systolic 112–170; BP diastolic 66–98
[2017-05-30 03:18] LABS: HEMOGLOBIN 8.3 G/DL (12.5-16.6); MCHC 34.6 G/DL (30.0-36.0); MCV 83.9 FL (86-99); PLATELET COUNT 162 K/uL (156-360); RBC DIS.WIDTH-CV 14.1 % (11.8-14.6); RBC DIS.WIDTH-SD 44.1 % (39-53); RED BLOOD COUNT 2.86 M/uL (4.00-5.50); WHITE BLOOD COUNT 14.6 K/uL (4.1-10.2)
[2017-05-30 03:31] LABS: ALBUMIN 2.2 g/dL (3.2-4.8); CHLORIDE 103 mEq/L (99-109); POTASSIUM 4.5 mEq/L (3.7-5.4); SODIUM 140 mEq/L (136-147)
[2017-05-30 03:33] LABS: GLUCOSE 160 mg/dL (70-99)
[2017-05-30 03:35] LABS: TOTAL BILIRUBIN 0.3 mg/dL (0.0-1.0)
[2017-05-30 03:37] LABS: ALKALINE PHOSPHATASE 49 IU/L (3-129); CREATININE 2.2 mg/dL (0.6-1.3); GFR ESTIMATE (CALCULATED) 35 mL/min/ (58.99-99999)
[2017-05-30 03:38] LABS: AST (GOT) 24 IU/L (2-34); DIRECT BILIRUBIN 0.2 mg/dL (0.0-0.3); UREA NITROGEN (BUN) 51 mg/dL (9-23)
[2017-05-30 03:40] LABS: ALT (GPT) 22 IU/L (3-49)
[2017-05-30 03:42] LABS: TOTAL PROTEIN 3.8 g/dL (6.4-8.3); TROP-I INTERPRETATION INDETERMINATE; TROPONIN-I 0.37 ng/mL (0.0-0.30)
[2017-05-30 04:10] LABS: VANCOMYCIN, TROUGH 13.8 MCG/ML (10-20)
[2017-05-31] VITALS (24 sets, daily range): BP systolic 117–159; BP diastolic 73–89
[2017-05-31 08:32] LABS: ALKALINE PHOSPHATASE 42 IU/L (3-129); ALT (GPT) 17 IU/L (3-49); AST (GOT) 17 IU/L (2-34); CHLORIDE 102 MEQ/L (99-109); GLUCOSE 178 mg/dL (70-99); PHOSPHORUS 7.8 mg/dL (2.5-4.9); POTASSIUM 4.6 MEQ/L (3.7-5.4); SODIUM 142 MEQ/L (136-147); TOTAL BILIRUBIN 0.3 MG/DL (0.0-1.0); TOTAL PROTEIN 4.1 G/DL (6.4-8.3); UREA NITROGEN (BUN) 64 mg/dL (9-23); VANCOMYCIN, TROUGH 20.4 MCG/ML (10-20)
[2017-05-31 08:34] LABS: CREATININE 2.8 MG/DL (0.6-1.3); GFR ESTIMATE (CALCULATED) 26 mL/min/ (58.99-99999); MAGNESIUM 2.2 mg/dl (1.3-2.7)
[2017-05-31 10:00] LABS: BASOPHIL (%) 0.1 % (0-1); EOSINOPHIL (%) 0.2 % (0-5); HEMATOCRIT 24.1 % (38.0-50.0); HEMOGLOBIN 8.1 G/DL (12.5-16.6); IMMATURE GRANULOCYTE (%) 1.1 % (0.0-0.7); LYMPHOCYTE (%) 20.8 % (15-42); LYMPHOCYTE COUNT 2.1 K/uL (1.0-2.8); MCH 28.6 PG (29.0-34.0); MCHC 33.6 G/DL (30.0-36.0); MCV 85.2 FL (86-99); MONOCYTE (%) 6.5 % (3-12); MONOCYTE COUNT 0.6 K/uL (0-0.8); NEUTROPHIL (%) 71.3 % (45-76); NEUTROPHIL COUNT 7.1 K/uL (1.8-6.4); PLATELET COUNT 158 K/uL (156-360); RBC DIS.WIDTH-CV 14.1 % (11.8-14.6); RBC DIS.WIDTH-SD 43.9 % (39-53); RED BLOOD COUNT 2.83 M/uL (4.00-5.50); WHITE BLOOD COUNT 9.9 K/uL (4.1-10.2)
[2017-05-31 22:38] LABS: LUPA PHOSPHOLIPID NEUTRALIZ Negative (Negative)
[2017-06-01] VITALS (26 sets, daily range): BP systolic 133–202; BP diastolic 77–110
[2017-06-01 05:09] LABS: BASE EXCESS 8.1 mEq/L (-3 to +3); CARBOXY HGB 1.6 % (0-5); COMMENTS - BLOOD GASES C+; DEVICE VENT; FI02 30 %; MECHANICAL RATE 20 resp/min; METHEMOGLOBIN 1.5 % (0-1.5); MODE ACVC; PCO2 41 mm Hg (35-45); PO2 69 mm Hg (80-100); SITE LR; TIDAL VOLUME 500 ML; TOTAL RESP RATE 22 resp/min
[2017-06-01 05:10] LABS: PEEP 6 CM/H20
[2017-06-01 07:03] LABS: BASOPHIL (%) 0.1 % (0-1); EOSINOPHIL (%) 0.4 % (0-5); HEMATOCRIT 24.8 % (38.0-50.0); HEMOGLOBIN 8.1 G/DL (12.5-16.6); IMMATURE GRANULOCYTE (%) 2.3 % (0.0-0.7); LYMPHOCYTE (%) 24.4 % (15-42); LYMPHOCYTE COUNT 2.5 K/uL (1.0-2.8); MCH 27.6 PG (29.0-34.0); MCHC 32.7 G/DL (30.0-36.0); MCV 84.6 FL (86-99); MONOCYTE (%) 6.2 % (3-12); MONOCYTE COUNT 0.6 K/uL (0-0.8); NEUTROPHIL (%) 66.6 % (45-76); NEUTROPHIL COUNT 6.7 K/uL (1.8-6.4); PLATELET COUNT 186 K/uL (156-360); RBC DIS.WIDTH-CV 13.8 % (11.8-14.6); RBC DIS.WIDTH-SD 43.1 % (39-53); RED BLOOD COUNT 2.93 M/uL (4.00-5.50); WHITE BLOOD COUNT 10.1 K/uL (4.1-10.2)
[2017-06-01 07:09] LABS: INTER. NORMALIZED RATIO 0.9
[2017-06-01 07:12] LABS: PTT 23.9 SEC (25-37)
[2017-06-01 07:26] LABS: CHLORIDE 102 MEQ/L (99-109); CREATININE 2.9 MG/DL (0.6-1.3); GFR ESTIMATE (CALCULATED) 25 mL/min/ (58.99-99999); GLUCOSE 190 mg/dL (70-99); MAGNESIUM 2.3 mg/dl (1.3-2.7); PHOSPHORUS 7.9 mg/dL (2.5-4.9); POTASSIUM 4.3 MEQ/L (3.7-5.4); SODIUM 143 MEQ/L (136-147); UREA NITROGEN (BUN) 73 mg/dL (9-23)
[2017-06-01 07:45] LABS: VANCOMYCIN, TROUGH 34.8 MCG/ML (10-20)
[2017-06-01 14:37] LABS: HIV-1/2 AB/AG COMBO Nonreactive
[2017-06-02] VITALS (23 sets, daily range): BP systolic 140–191; BP diastolic 75–100
[2017-06-02 05:57] LABS: HEMATOCRIT 25.7 % (38.0-50.0); HEMOGLOBIN 8.4 G/DL (12.5-16.6); MCH 27.5 PG (29.0-34.0); MCHC 32.7 G/DL (30.0-36.0); MCV 84.3 FL (86-99); PLATELET COUNT 193 K/uL (156-360); RBC DIS.WIDTH-CV 13.7 % (11.8-14.6); RBC DIS.WIDTH-SD 42.3 % (39-53); RED BLOOD COUNT 3.05 M/uL (4.00-5.50); WHITE BLOOD COUNT 10.5 K/uL (4.1-10.2)
[2017-06-02 06:24] LABS: ALBUMIN 2.1 G/DL (3.2-4.8); CHLORIDE 102 MEQ/L (99-109); CREATININE 3.3 MG/DL (0.6-1.3); GFR ESTIMATE (CALCULATED) 22 mL/min/ (58.99-99999); GLUCOSE 166 mg/dL (70-99); MAGNESIUM 2.2 mg/dl (1.3-2.7); PHOSPHORUS 7.6 mg/dL (2.5-4.9); POTASSIUM 3.9 MEQ/L (3.7-5.4); SODIUM 143 MEQ/L (136-147); UREA NITROGEN (BUN) 77 mg/dL (9-23)
[2017-06-02 06:46] LABS: ANISOCYTOSIS 1+; BASOPHIL (%) 0.1 % (0-1); EOSINOPHIL (%) 0.6 % (0-5); EOSINOPHIL COUNT 0.1 K/uL (0-0.3); IMMATURE GRANULOCYTE (%) 2.2 % (0.0-0.7); LYMPHOCYTE (%) 27.4 % (15-42); LYMPHOCYTE COUNT 2.9 K/uL (1.0-2.8); MICROCYTOSIS 1+; MONOCYTE (%) 6.8 % (3-12); MONOCYTE COUNT 0.7 K/uL (0-0.8); NEUTROPHIL (%) 62.9 % (45-76); NEUTROPHIL COUNT 6.6 K/uL (1.8-6.4)
[2017-06-03] VITALS (20 sets, daily range): BP systolic 155–197; BP diastolic 84–103
[2017-06-03 04:54] LABS: HEMATOCRIT 23.7 % (38.0-50.0); MCH 28.7 PG (29.0-34.0); MCHC 33.8 G/DL (30.0-36.0); MCV 84.9 FL (86-99); PLATELET COUNT 193 K/uL (156-360); RBC DIS.WIDTH-CV 13.6 % (11.8-14.6); RBC DIS.WIDTH-SD 42.2 % (39-53); RED BLOOD COUNT 2.79 M/uL (4.00-5.50); WHITE BLOOD COUNT 12.2 K/uL (4.1-10.2)
[2017-06-03 05:02] LABS: ALBUMIN 2.2 g/dL (3.2-4.8); CHLORIDE 105 mEq/L (99-109); POTASSIUM 4.3 mEq/L (3.7-5.4); SODIUM 141 mEq/L (136-147)
[2017-06-03 05:03] LABS: MAGNESIUM 1.8 mg/dL (1.3-2.7)
[2017-06-03 05:04] LABS: GLUCOSE 168 mg/dL (70-99)
[2017-06-03 05:08] LABS: GFR ESTIMATE (CALCULATED) 29 mL/min/ (58.99-99999); PHOSPHORUS 5.9 mg/dL (2.5-4.9)
[2017-06-03 05:09] LABS: UREA NITROGEN (BUN) 50 mg/dL (9-23)
[2017-06-03 05:12] LABS: CREATININE 2.6 mg/dL (0.6-1.3)
[2017-06-03 05:30] LABS: VANCOMYCIN, TROUGH 18.4 MCG/ML (10-20)
[2017-06-03 05:42] LABS: ABS NEUTROPHIL COUNT 9.5; ACANTHOCYTES 1+; ANISOCYTOSIS 2+; EOSINOPHIL ABS CT 0; LYMPHOCYTES 19.8 % (15.0-45.0); MICROCYTOSIS 2+; MONOCYTES 2.7 % (0-9.0); PLAT.SUFFICIENCY ADEQUATE; SCHISTOCYTES 1+; SEG.NEUTROPHILS 77.5 % (46.0-76.0)
[2017-06-03 11:14] LABS: C DIFF TOXIN NEGATIVE (NEGATIVE)
[2017-06-03 17:06] LABS: ANTITHROMBIN III ACTIVITY+ 92 % activi (80-120); DRVVT Mixing Study Interp Not Indicated (()); FACTOR VIII ACTIVITY+ 225 % (50-180); PROTEIN C FUNCTIONAL ACTIVITY+ 146 % (70-180); PTT-LA 35 sec (<=40); Protein S, Free 70 % normal (57-171); Thrombosis Consult Level Limited (()); dRVVT Screen 47 sec (<=45)
[2017-06-04] VITALS (12 sets, daily range): BP systolic 123–182; BP diastolic 74–107
[2017-06-04 05:07] LABS: BASOPHIL (%) 0.3 % (0-1); EOSINOPHIL (%) 0.2 % (0-5); HEMATOCRIT 28.4 % (38.0-50.0); HEMOGLOBIN 9.5 G/DL (12.5-16.6); IMMATURE GRANULOCYTE (%) 3.6 % (0.0-0.7); LYMPHOCYTE (%) 17.2 % (15-42); LYMPHOCYTE COUNT 1.9 K/uL (1.0-2.8); MCH 28.3 PG (29.0-34.0); MCHC 33.5 G/DL (30.0-36.0); MCV 84.5 FL (86-99); MONOCYTE COUNT 0.2 K/uL (0-0.8); NEUTROPHIL (%) 76.7 % (45-76); NEUTROPHIL COUNT 8.6 K/uL (1.8-6.4); PLATELET COUNT 187 K/uL (156-360); RBC DIS.WIDTH-CV 13.5 % (11.8-14.6); WHITE BLOOD COUNT 11.3 K/uL (4.1-10.2)
[2017-06-04 05:12] LABS: RED BLOOD COUNT 3.36 M/uL (4.00-5.50)
[2017-06-04 05:21] LABS: ALBUMIN 2.3 g/dL (3.2-4.8)
[2017-06-04 05:22] LABS: CHLORIDE 105 mEq/L (99-109); POTASSIUM 4.5 mEq/L (3.7-5.4); SODIUM 139 mEq/L (136-147)
[2017-06-04 05:27] LABS: PHOSPHORUS 6.6 mg/dL (2.5-4.9)
[2017-06-04 05:28] LABS: GFR ESTIMATE (CALCULATED) 23 mL/min/ (58.99-99999)
[2017-06-04 05:29] LABS: UREA NITROGEN (BUN) 61 mg/dL (9-23)
[2017-06-04 05:32] LABS: CREATININE 3.1 mg/dL (0.6-1.3); GLUCOSE 270 mg/dL (70-99)
[2017-06-05] VITALS: BP 161/85
[2017-06-05 02:38] VITALS: BP 182/91
[2017-06-05 04:00] VITALS: BP 178/92
[2017-06-05 07:07] LABS: BASOPHIL (%) 0.1 % (0-1); EOSINOPHIL (%) 0.1 % (0-5); HEMATOCRIT 26.9 % (38.0-50.0); HEMOGLOBIN 9.1 G/DL (12.5-16.6); IMMATURE GRANULOCYTE (%) 3.8 % (0.0-0.7); LYMPHOCYTE (%) 13.2 % (15-42); MCH 28.5 PG (29.0-34.0); MCHC 33.8 G/DL (30.0-36.0); MCV 84.3 FL (86-99); MONOCYTE (%) 3.6 % (3-12); MONOCYTE COUNT 0.6 K/uL (0-0.8); NEUTROPHIL (%) 79.2 % (45-76); NEUTROPHIL COUNT 12.2 K/uL (1.8-6.4); PLATELET COUNT 231 K/uL (156-360); RBC DIS.WIDTH-CV 13.7 % (11.8-14.6); RBC DIS.WIDTH-SD 41.9 % (39-53); RED BLOOD COUNT 3.19 M/uL (4.00-5.50); WHITE BLOOD COUNT 15.4 K/uL (4.1-10.2)
[2017-06-05 07:29] LABS: ALBUMIN 2.4 G/DL (3.2-4.8); CHLORIDE 103 MEQ/L (99-109); CREATININE 3.3 MG/DL (0.6-1.3); GFR ESTIMATE (CALCULATED) 22 mL/min/ (58.99-99999); GLUCOSE 397 mg/dL (70-99); PHOSPHORUS 6.2 mg/dL (2.5-4.9); POTASSIUM 4.1 MEQ/L (3.7-5.4); SODIUM 142 MEQ/L (136-147); UREA NITROGEN (BUN) 71 mg/dL (9-23); VANCOMYCIN, TROUGH 14.4 MCG/ML (10-20)
[2017-06-05 11:54] VITALS: BP 134/80
[2017-06-05 17:02] VITALS: BP 246/111
[2017-06-05 20:40] VITALS: BP 205/96
[2017-06-06 01:58] VITALS: BP 178/95
[2017-06-06 05:46] VITALS: BP 200/100
[2017-06-06 07:35] LABS: ALBUMIN 2.2 G/DL (3.2-4.8); CHLORIDE 104 MEQ/L (99-109); CREATININE 3.2 MG/DL (0.6-1.3); GFR ESTIMATE (CALCULATED) 23 mL/min/ (58.99-99999); GLUCOSE 234 mg/dL (70-99); POTASSIUM 4.3 MEQ/L (3.7-5.4); SODIUM 142 MEQ/L (136-147); UREA NITROGEN (BUN) 71 mg/dL (9-23)
[2017-06-06 08:06] VITALS: BP 173/91
[2017-06-06 16:00] VITALS: BP 196/111
[2017-06-06 20:31] VITALS: BP 229/111
[2017-06-07 00:02] VITALS: BP 211/93
[2017-06-07 03:41] VITALS: BP 198/91
[2017-06-07 06:16] LABS: BASOPHIL (%) 0.1 % (0-1); EOSINOPHIL (%) 0.1 % (0-5); HEMATOCRIT 24.5 % (38.0-50.0); HEMOGLOBIN 8.3 G/DL (12.5-16.6); IMMATURE GRANULOCYTE (%) 1.7 % (0.0-0.7); LYMPHOCYTE (%) 16.1 % (15-42); LYMPHOCYTE COUNT 1.8 K/uL (1.0-2.8); MCH 28.3 PG (29.0-34.0); MCHC 33.9 G/DL (30.0-36.0); MCV 83.6 FL (86-99); MONOCYTE (%) 7.4 % (3-12); MONOCYTE COUNT 0.8 K/uL (0-0.8); NEUTROPHIL (%) 74.6 % (45-76); NEUTROPHIL COUNT 8.2 K/uL (1.8-6.4); PLATELET COUNT 193 K/uL (156-360); RBC DIS.WIDTH-CV 13.8 % (11.8-14.6); RBC DIS.WIDTH-SD 42.3 % (39-53); RED BLOOD COUNT 2.93 M/uL (4.00-5.50)
[2017-06-07 06:43] LABS: ALBUMIN 2.1 G/DL (3.2-4.8); CHLORIDE 106 MEQ/L (99-109); CREATININE 3.3 MG/DL (0.6-1.3); GFR ESTIMATE (CALCULATED) 22 mL/min/ (58.99-99999); GLUCOSE 257 mg/dL (70-99); PHOSPHORUS 5.3 mg/dL (2.5-4.9); POTASSIUM 3.9 MEQ/L (3.7-5.4); SODIUM 142 MEQ/L (136-147); UREA NITROGEN (BUN) 76 mg/dL (9-23)
[2017-06-07 08:26] VITALS: BP 182/95
[2017-06-07 15:29] VITALS: BP 193/107
[2017-06-07 16:21] VITALS: BP 162/84
[2017-06-07 21:35] VITALS: BP 179/88
[2017-06-08 07:04] LABS: HEMATOCRIT 25.9 % (38.0-50.0); HEMOGLOBIN 8.8 G/DL (12.5-16.6); MCH 28.8 PG (29.0-34.0); MCV 84.6 FL (86-99); PLATELET COUNT 193 K/uL (156-360); RBC DIS.WIDTH-SD 43.1 % (39-53); RED BLOOD COUNT 3.06 M/uL (4.00-5.50); WHITE BLOOD COUNT 9.5 K/uL (4.1-10.2)
[2017-06-08 07:32] LABS: ALBUMIN 2.2 G/DL (3.2-4.8); CHLORIDE 105 MEQ/L (99-109); CREATININE 3.1 MG/DL (0.6-1.3); GFR ESTIMATE (CALCULATED) 23 mL/min/ (58.99-99999); GLUCOSE 220 mg/dL (70-99); PHOSPHORUS 4.8 mg/dL (2.5-4.9); POTASSIUM 3.9 MEQ/L (3.7-5.4); SODIUM 141 MEQ/L (136-147); UREA NITROGEN (BUN) 78 mg/dL (9-23)
[2017-06-08 09:50] VITALS: BP 190/84
[2017-06-08 14:52] VITALS: BP 152/88
[2017-06-08 16:25] VITALS: BP 198/102
[2017-06-09 01:20] VITALS: BP 179/86
[2017-06-09 06:56] LABS: ALBUMIN 2.3 G/DL (3.2-4.8); CHLORIDE 107 MEQ/L (99-109); SODIUM 141 MEQ/L (136-147)
[2017-06-09 07:01] LABS: GFR ESTIMATE (CALCULATED) 24 mL/min/ (58.99-99999); GLUCOSE 248 mg/dL (70-99); PHOSPHORUS 4.6 mg/dL (2.5-4.9); UREA NITROGEN (BUN) 88 mg/dL (9-23)
[2017-06-09 07:59] VITALS: BP 164/84
[2017-06-09 16:26] VITALS: BP 142/78
[2017-06-10 05:36] LABS: HEMATOCRIT 25.1 % (38.0-50.0); HEMOGLOBIN 8.4 G/DL (12.5-16.6); MCH 28.1 PG (29.0-34.0); MCHC 33.5 G/DL (30.0-36.0); MCV 83.9 FL (86-99); PLATELET COUNT 186 K/uL (156-360); RBC DIS.WIDTH-SD 42.8 % (39-53); RED BLOOD COUNT 2.99 M/uL (4.00-5.50); WHITE BLOOD COUNT 11.8 K/uL (4.1-10.2)
[2017-06-10 06:03] LABS: ALBUMIN 2.2 G/DL (3.2-4.8); CHLORIDE 105 MEQ/L (99-109); CREATININE 3.3 MG/DL (0.6-1.3); GFR ESTIMATE (CALCULATED) 22 mL/min/ (58.99-99999); PHOSPHORUS 4.5 mg/dL (2.5-4.9); POTASSIUM 4.3 MEQ/L (3.7-5.4); SODIUM 141 MEQ/L (136-147); UREA NITROGEN (BUN) 95 mg/dL (9-23)
[2017-06-10 06:05] LABS: GLUCOSE 381 mg/dL (70-99)
[2017-06-10 08:00] VITALS: BP 189/91
[2017-06-10 16:27] VITALS: BP 175/86
[2017-06-11 00:35] VITALS: BP 138/74
[2017-06-11 07:15] VITALS: BP 146/79
[2017-06-11 07:25] LABS: ALBUMIN 2.4 G/DL (3.2-4.8); CHLORIDE 101 MEQ/L (99-109); CREATININE 3.1 MG/DL (0.6-1.3); GFR ESTIMATE (CALCULATED) 23 mL/min/ (58.99-99999); GLUCOSE 361 mg/dL (70-99); PHOSPHORUS 4.7 mg/dL (2.5-4.9); POTASSIUM 4.3 MEQ/L (3.7-5.4); SODIUM 137 MEQ/L (136-147); UREA NITROGEN (BUN) 95 mg/dL (9-23)
[2017-06-11 15:05] VITALS: BP 121/67
[2017-06-11 20:43] VITALS: BP 143/85
[2017-06-11 23:33] VITALS: BP 147/73
[2017-06-12 07:27] VITALS: BP 143/80
[2017-06-12 09:25] LABS: HEMATOCRIT 25.4 % (38.0-50.0); HEMOGLOBIN 8.8 G/DL (12.5-16.6); MCH 28.9 PG (29.0-34.0); MCHC 34.6 G/DL (30.0-36.0); MCV 83.6 FL (86-99); PLATELET COUNT 182 K/uL (156-360); RBC DIS.WIDTH-CV 14.2 % (11.8-14.6); RBC DIS.WIDTH-SD 43.3 % (39-53); RED BLOOD COUNT 3.04 M/uL (4.00-5.50); WHITE BLOOD COUNT 15.9 K/uL (4.1-10.2)
[2017-06-12 09:39] LABS: CHLORIDE 101 MEQ/L (99-109); POTASSIUM 4.3 MEQ/L (3.7-5.4); SODIUM 135 MEQ/L (136-147)
[2017-06-12 10:03] LABS: CREATININE 3.2 MG/DL (0.6-1.3); GFR ESTIMATE (CALCULATED) 23 mL/min/ (58.99-99999); UREA NITROGEN (BUN) 96 mg/dL (9-23)
[2017-06-12 10:17] LABS: GLUCOSE 151 mg/dL (70-99)
[2017-06-12 15:15] VITALS: BP 139/77
[2017-06-12 23:59] VITALS: BP 148/84
[2017-06-13 09:16] VITALS: BP 168/82
[2017-06-13 15:43] VITALS: BP 127/80
[2017-06-14 00:21] VITALS: BP 126/79
[2017-06-14 07:14] LABS: ALBUMIN 2.3 G/DL (3.2-4.8); CHLORIDE 100 MEQ/L (99-109); CREATININE 3.6 MG/DL (0.6-1.3); GFR ESTIMATE (CALCULATED) 20 mL/min/ (58.99-99999); GLUCOSE 213 mg/dL (70-99); PHOSPHORUS 5.1 mg/dL (2.5-4.9); SODIUM 134 MEQ/L (136-147); URIC ACID 7.7 mg/dL (3.1-9.2)
[2017-06-14 07:19] LABS: UREA NITROGEN (BUN) 110 mg/dL (9-23)
[2017-06-14 08:06] VITALS: BP 145/80
[2017-06-14 15:59] LABS: CHLORIDE 99 MEQ/L (99-109); POTASSIUM 4.9 MEQ/L (3.7-5.4); SODIUM 133 MEQ/L (136-147)
[2017-06-14 16:07] LABS: CREATININE 3.7 MG/DL (0.6-1.3); GFR ESTIMATE (CALCULATED) 19 mL/min/ (58.99-99999); GLUCOSE 295 mg/dL (70-99); UREA NITROGEN (BUN) 107 mg/dL (9-23)
[2017-06-14 17:00] VITALS: BP 159/77
[2017-06-14 20:30] VITALS: BP 171/87
[2017-06-14 23:42] VITALS: BP 164/93
[2017-06-15 07:29] LABS: ALBUMIN 2.4 G/DL (3.2-4.8); CHLORIDE 100 MEQ/L (99-109); CREATININE 3.4 MG/DL (0.6-1.3); GFR ESTIMATE (CALCULATED) 21 mL/min/ (58.99-99999); GLUCOSE 201 mg/dL (70-99); PHOSPHORUS 4.9 mg/dL (2.5-4.9); POTASSIUM 4.5 MEQ/L (3.7-5.4); SODIUM 134 MEQ/L (136-147)
[2017-06-15 07:36] LABS: UREA NITROGEN (BUN) 104 mg/dL (9-23)
[2017-06-15 07:48] VITALS: BP 165/91
[2017-06-15] MEDS ORDERED: SPIRIVA RESPIMAT4 GM IH (14:54)
[2017-06-15] MEDS ORDERED: DUONEB 2.5-0.5 M3 ML AEROSOL (14:54)
[2017-06-15] MEDS ORDERED: NICOTINE PATCH1 EAC1 TD (14:54)
[2017-06-15] MEDS ORDERED: CARVEDILOL25 MG PO (14:55)
[2017-06-15] MEDS ORDERED: ASPIR-LOW81 MG PO (14:55)
[2017-06-15] MEDS ORDERED: ADVAIR HFA120 INHALA IH (14:55)
[2017-06-15] MEDS ORDERED: LEVEMIR100 UNIT/2 SC ×2 (14:56→14:57)
[2017-06-15] MEDS ORDERED: PREDNISONE10 MG PO (14:58)
[2017-06-15] MEDS ORDERED: AUGMENTIN875 MG PO (15:01)
[2017-06-15] MEDS ORDERED: FLORASTOR250 MG PO (15:01)
[2017-06-15] MEDS ORDERED: CLONIDINE1 EAC2 TD (15:04)
[2017-06-15] MEDS ORDERED: PRAVASTATIN SOD80 MG PO (15:04)
[2017-06-15] MEDS ORDERED: APRESOLINE100 MG PO (15:04)
[2017-06-15 16:29] VITALS: BP 145/89
== END 2017-06-15 19:49 | disposition designated cancer center or children's hospital (05) | DRG 64 ==
LOC: EME 08:29 → EDOF 12:41 → 5SOUTH 12:41 → 4WEST 12:41 → ENRESERV 12:43 → 5SOUTH 14:07 → CANRESERV 05-25 11:35 → ENRESERV 05-25 11:35 → 5SOUTH 05-26 10:15 → ENRESERV 05-26 10:16 → 4EAST 05-26 11:35 → ENRESERV 05-29 09:39 → 4WEST 05-29 09:39 → ENRESERV 06-04 23:29 → 5SOUTH 06-05 02:07
PROVIDERS: Emergency Medicine; Hospitalist; Internal Medicine; Internal Medicine Gastroenterology; Internal Medicine Nephrology; Internal Medicine Pulmonary Disease; Nurse Practitioner Adult Health; Physician Assistant; Physician Assistant Medical; Specialist; Student in an Organized Health Care Education/Training Program
PROC: 0W9G3ZZ Drainage of Peritoneal Cavity, Percutaneous Approach (ICD-10-PCS; principal; 2017-05-22)
PROC: 5A1D70Z Performance of Urinary Filtration, Intermittent, Less than 6 Hours Per Day (ICD-10-PCS; 2017-05-27)
PROC: 02HV33Z Insertion of Infusion Device into Superior Vena Cava, Percutaneous Approach (ICD-10-PCS; 2017-05-27)
PROC: 5A1955Z Respiratory Ventilation, Greater than 96 Consecutive Hours (ICD-10-PCS; 2017-05-29)
PROC: 0BH17EZ Insertion of Endotracheal Airway into Trachea, Via Natural or Artificial Opening (ICD-10-PCS; 2017-05-29)
PROC: B246ZZ4 Ultrasonography of Right and Left Heart, Transesophageal (ICD-10-PCS; 2017-05-30)
PROC: 02PYX3Z Removal of Infusion Device from Great Vessel, External Approach (ICD-10-PCS; 2017-06-09)
DX: I63.9 Cerebral infarction, unspecified (principal); R13.10 Dysphagia, unspecified; R53.1 Weakness; H53.8 Other visual disturbances; N17.9 Acute kidney failure, unspecified; J69.0 Pneumonitis due to inhalation of food and vomit; J96.01 Acute respiratory failure with hypoxia; J96.02 Acute respiratory failure with hypercapnia; Y95 Nosocomial condition; G93.6 Cerebral edema; I12.9 Hypertensive chronic kidney disease with stage 1 through stage 4 chronic kidney disease, or unspecified chronic kidney disease; N18.3 Chronic kidney disease, stage 3 (moderate); E11.22 Type 2 diabetes mellitus with diabetic chronic kidney disease; E11.65 Type 2 diabetes mellitus with hyperglycemia; E11.649 Type 2 diabetes mellitus with hypoglycemia without coma; T38.0X5A Adverse effect of glucocorticoids and synthetic analogues, initial encounter; E11.42 Type 2 diabetes mellitus with diabetic polyneuropathy; E87.4 Mixed disorder of acid-base balance; E83.39 Other disorders of phosphorus metabolism; E87.79 Other fluid overload; E66.01 Morbid (severe) obesity due to excess calories; Z68.35 Body mass index [BMI] 35.0-35.9, adult; D50.9 Iron deficiency anemia, unspecified; K70.31 Alcoholic cirrhosis of liver with ascites; B18.2 Chronic viral hepatitis C; R19.7 Diarrhea, unspecified; T36.0X5A Adverse effect of penicillins, initial encounter; T78.40XA Allergy, unspecified, initial encounter; E78.5 Hyperlipidemia, unspecified; G52.9 Cranial nerve disorder, unspecified; H51.22 Internuclear ophthalmoplegia, left eye; H55.00 Unspecified nystagmus; J98.11 Atelectasis; R29.701 NIHSS score 1; F17.210 Nicotine dependence, cigarettes, uncomplicated; F10.11 Alcohol abuse, in remission; Z91.81 History of falling; Z79.84 Long term (current) use of oral hypoglycemic drugs; Z91.11 Patient's noncompliance with dietary regimen; Z82.49 Family history of ischemic heart disease and other diseases of the circulatory system; Z83.3 Family history of diabetes mellitus
CPT/HCPCS: 36415; 36600; 49083; 70450; 70551; 70552; 71045; 71250; 72131; 72141; 74176; 74230; 76705; 76770; 77021; 80048; 80048 91; 80053; 80061; 80069; 80076; 80202; 81003; 81240 90; 82105 90; 82140; 82550; 82553; 82570; 82607; 82728; 82746; 82803; 82948; 83036; 83090 90; 83540; 83605; 83735; 83880; 83935; 84100; 84156; 84166; 84300; 84466; 84484; 84550; 84999; 85025; 85025 91; 85027; 85240 90; 85300 90; 85303 90; 85305 90; 85306 90; 85610; 85613 90; 85651; 85730; 85730 90; 86146 90; 86147 90; 86703; 86704; 86706; 86803; 87040; 87070; 87205; 87340; 87493; 87502; 87641; 90686; 92526 GN; 92610 GN; 92611 GN; 93005; 93306; 93312; 93882; 93970; 94002; 94003; 94640; 94640 76; 94760; 94799; 97530 GO; 97530 GP; 99202; 99281; 99285; A6214; C1751; C1752; C9113; J0360; J1100; J1200; J1630; J1644; J1650; J1815; J1940; J2060; J2250; J2405; J2543; J2704; J2920; J3370; J7030; J7040; J7042; J7050; J7512; J8540; P9047; S0028

== ENCOUNTER → 2017-05-20 | Outpatient (CLI) | payer OTHER ==
[~2017-05-20] MED LIST changes: +ERGOCALCIF50000 UNIT PO
== END | disposition home or self-care (01) ==
LOC: RAD 05-19 08:30
PROC: 0WJG3ZZ Inspection of Peritoneal Cavity, Percutaneous Approach (ICD-10-PCS; principal; 2017-05-20)
DX: R18.8 Other ascites (principal); K74.69 Other cirrhosis of liver; Z53.09 Procedure and treatment not carried out because of other contraindication
CPT/HCPCS: 76705; P9047